=== PATIENT | female | born 1970 | race Caucasian/White ===

== ENCOUNTER 2020-04-06 07:49 | Inpatient (IN) | payer OTHER ==
[2020-04-06] MEDS ORDERED: CLINDAMYCIN-D5W 900 MG/50 ML*** 900 MG/50 ML BAG IV STA (08:23)
[2020-04-06] MEDS ORDERED: Lactated Ringers 1,000 ML IV SCH (08:30)
[2020-04-06] MEDS ORDERED: Lactated Ringers 1,000 ML IV ONE (08:45)
[2020-04-06] MEDS ORDERED: CLINDAMYCIN-D5W 900 MG/50 ML*** 900 MG/50 ML BAG IV ONE (08:45)
[2020-04-06] MEDS ORDERED: SUBLIMAZE 250 MCG/5 ML ONE (09:30)
[2020-04-06] MEDS ORDERED: DIPRIVAN 200 MG/20 ML IV ONE (09:30)
[2020-04-06] MEDS ORDERED: Versed 2 MG/2 ML Injection ONE (09:30)
[2020-04-06] MEDS ORDERED: Zemuron 100 MG/10 ML ONE ×2 (09:30→11:02)
[2020-04-06] MEDS ORDERED: Astramorph-Pf 5 MG/10 ML ONE (09:58)
[2020-04-06] MEDS ORDERED: Decadron 4 MG INJ ONE (10:00)
[2020-04-06] MEDS ORDERED: MARCAINE 0.5%-EPI 1:200,000 VL IJ ONE (10:50)
[2020-04-06] MEDS ORDERED: Marcaine 0.5%/Epinephrine 10 ML ONE (10:50)
[2020-04-06] MEDS ORDERED: Zofran 4 MG/2 ML VIAL ONE (11:12)
[2020-04-06] MEDS ORDERED: TORAdol 30 mg Injection ONE (11:13)
[2020-04-06] MEDS ORDERED: BRIDION 200MG/2ML IV ONE (11:21)
[2020-04-06 12:53] LABS: Appearance CLEAR (CLEAR); Bilirubin NEGATIVE (NEGATIVE); Blood NEGATIVE Ery/ul (0-5); Glucose NEGATIVE (NEGATIVE); Ketones NEGATIVE (NEGATIVE); Leukocyte Esterase NEGATIVE (NEGATIVE); Nitrite NEGATIVE (NEGATIVE); Protein,Urine Dip NEGATIVE (Negative); Specific Gravity 1.008 (1.005-1.025); Urobilinogen NEGATIVE mg/dL (0-1)
[2020-04-06] MEDS ORDERED: Zofran 4 MG/2 ML VIAL IV PRN ×2 (12:54→13:00)
[2020-04-06] MEDS ORDERED: TORAdol 30 mg Injection IV PRN (12:55)
[2020-04-06] MEDS ORDERED: Nubain 10 MG/ML IV PRN (13:00)
[2020-04-06] MEDS ORDERED: MORPHINE SULFATE 2 MG INJ IV PRN (13:00)
[2020-04-06] MEDS ORDERED: DEMEROL 50 MG IV PRN (13:00)
[2020-04-06] MEDS ORDERED: CLARITIN 10 MG PO PRN (13:00)
[2020-04-06] MEDS ORDERED: Sodium Chloride 0.9% 10 ML FLUSH Syringe IJ PRN (13:00)
[2020-04-06] MEDS ORDERED: Narcan 0.4 MG/ML IV PRN (13:00)
[2020-04-06 13:05] LABS: Bacteria NONE SEEN /HPF (NEGATIVE); WBC NONE SEEN /HPF (0-5)
[2020-04-06] MEDS: CLINDAMYCIN-D5W 900 MG/50 ML*** 900 MG/50 ML BAG IV SCH ×2 (13:14→20:58)
[2020-04-06] MEDS: Reglan 10 MG/2 ML IV SCH ×2 (13:15→21:14)
[2020-04-06] MEDS ORDERED: BENADRYL 50 MG/ML IV PRN (13:15)
[2020-04-06] MEDS: Colace 100 MG PO SCH ×2 (13:15→20:58)
[2020-04-06] MEDS: Mylicon 80MG PO SCH ×2 (13:15→20:57)
[2020-04-06] MEDS: Sodium Chloride 0.9% 10 ML FLUSH Syringe IJ SCH ×2 (14:20→21:14)
[2020-04-06 18:23] LABS: Hematocrit 37.7 % (35-47); Mean Corpuscular Hemoglobin 34.1 pg (26-32); Mean Corpuscular Hgb Concent. 34.5 g/dl (32-36); Mean Platelet Volume 9.9 fl (7.5-11.0); Platelet Count 270 K/mm3 (150-450); Red Blood Count 3.81 M/mm3 (4.1-5.4); Red Cell Distribution Width 12.2 % (11.5-14.0); White Blood Count 19.8 K/mm3 (4.0-10.5)
[2020-04-06] MEDS: Lactated Ringers 1,000 ML IV SCH (20:57)
[2020-04-06] MEDS: PERCOCET TABLET 5/325MG PO PRN (20:58)
[2020-04-07 05:14] LABS: Hematocrit 33.8 % (35-47); Hemoglobin 11.5 gm/dl (12.0-16.0); Mean Cell Volume 99.7 fl (78-100); Mean Corpuscular Hemoglobin 33.9 pg (26-32); Platelet Count 247 K/mm3 (150-450); Red Blood Count 3.39 M/mm3 (4.1-5.4)
[2020-04-07] MEDS: Lactated Ringers 1,000 ML IV SCH (05:19)
[2020-04-07] MEDS: Mylicon 80MG PO SCH (05:19)
[2020-04-07] MEDS: PERCOCET TABLET 5/325MG PO PRN ×2 (05:19→09:21)
[2020-04-07] MEDS: Reglan 10 MG/2 ML IV SCH (05:20)
[2020-04-07] MEDS: Sodium Chloride 0.9% 10 ML FLUSH Syringe IJ SCH (05:30)
[2020-04-07 05:36] LABS: ALKALINE PHOSPHATASE 41 U/L (38-126); ANION GAP 8.5 MEQ/L (5-15); BLOOD UREA NITROGEN 13 mg/dL (7-17); CHLORIDE 106 mmol/L (98-107); Calcium 8.1 mg/dL (8.4-10.2); Carbon Dioxide 24 mmol/L (22-30); Creatinine 1 0.65 mg/dL (0.52-1.04); EST GLOMERULAR FILTRATION RATE > 60.0 ML/MIN; Glucose 93 mg/dL (74-106); Potassium 3.9 mmol/L (3.5-5.1); SGOT/AST 23 U/L (14-36); SGPT/ALT 13 U/L (0-35); SODIUM 135 mmol/L (137-145); Total Protein 5.8 g/dL (6.3-8.2)
[2020-04-07] MEDS: Colace 100 MG PO SCH (07:55)
[2020-04-07] MEDS ORDERED: ENOXAPARIN SODIUM SQ SCH (08:00)
--- NOTE | 2020-04-07 08:10 | PCM.DCORD ---
- Discharge Discharge Date: 04/07/20 Disposition: Home, Self-Care Prescriptions: No Action Montelukast Sodium 10 mg [Singulair 10 MG] 10 mg PO DAILY Multivitamin [Multivitamins] 1 each PO DAILY Follow up with: ISMAEL COTE [Primary Care Provider] - 1 Week INDY ORTA MD [Family Provider] - 1 Week ESTER HOLBROOK DO [ACTIVE STAFF] - Call for Appointment (SHOULD FU IN 2 WKS)
--- NOTE | 2020-04-07 08:12 | PCM.DS ---
Discharge Summary Date of Admission: 04/06/20 07:49 Date of Discharge: 04/07/20 Admitting Physician: ESTER HOLBROOK DO Primary Care Provider: ISMAEL COTE Allergies Allergies cephalexin [From Keflex] Allergy (Verified 04/06/20 08:14) ofloxacin [From Floxin] Allergy (Verified 04/06/20 08:14) Sulfa (Sulfonamide Antibiotics) Allergy (Verified 04/06/20 08:14) Hospital Summary - Hospital Course Hospital Course: PT ADMITTED ON APRIL 06 FOR UNDERGOING LAPAROTOMY SUPRACERVICAL HYSTERECTOMY SECONDARY TO SYMPTOMATIC FIBROID UTERUS. DURING POSTOP PERIOD PT DID VERY WELL AND HAD STABLE HGB ONPOD 1 AT 11.9. PT WAS ABLE TO AMBULATE AND TOLERATE DIET AND WAS EAGER TO BE DISCHARGED TODAY. PT WAS GIVEN CLINDAMYCIN BID 5 DAYS PROPHYLAXIS AND WAS ADVISED TO FU IN OFFICE IN 2 WKS FOR POSTOP CHECK. PT ALSO GIVEN NORCO #[id number] FOR PAIN MANAGEMENT. ALL QUESTIONS ANSWERED TO HER SATISFACTION. - Vitals & Intake/Output Vital Signs: Vital Signs Temperature 98.9 F 04/07/20 07:37 Pulse Rate 71 04/07/20 07:37 Respiratory Rate 20 04/07/20 07:37 Blood Pressure 100/61 04/07/20 07:37 O2 Sat by Pulse Oximetry 100 04/07/20 07:37 Intake & Output: Intake & Output 04/04/20 04/05/20 04/06/20 04/07/20 11:59 11:59 11:59 11:59 Intake Total 2243 Output Total 1300 Balance 943 Weight 76.3 kg 76.3 kg - Lab Result Diagrams: 04/07/20 05:09 04/07/20 05:09 Lab Results-Last 24 Hrs: Lab Results-Last 24 Hours 04/06/20 04/06/20 04/06/20 Range/Units 08:15 10:51 18:22 WBC 19.8 H (4.0-10.5) K/mm3 RBC 3.81 L (4.1-5.4) M/mm3 Hgb 13.0 (12.0-16.0) gm/dl Hct 37.7 (35-47) % MCV 99.0 (78-100) fl MCH 34.1 H (26-32) pg MCHC 34.5 (32-36) g/dl RDW 12.2 (11.5-14.0) % Plt Count 270 (150-450) K/mm3 MPV 9.9 (7.5-11.0) fl Sodium (137-145) mmol/L Potassium (3.5-5.1) mmol/L Chloride (98-107) mmol/L Carbon Dioxide (22-30) mmol/L Anion Gap (5-15) MEQ/L BUN (7-17) mg/dL Creatinine (0.52-1.04) mg/dL Estimated GFR ML/MIN Glucose (74-106) mg/dL Calcium (8.4-10.2) mg/dL Total Bilirubin (0.2-1.3) mg/dL AST (14-36) U/L ALT (0-35) U/L Alkaline Phosphatase (38-126) U/L Serum Total Protein (6.3-8.2) g/dL Albumin (3.5-5.0) g/dL Urine Color STRAW (YELLOW) Urine Appearance CLEAR (CLEAR) Urine pH 7.0 (5-6) Ur Specific [place] 1.008 (1.005-1.025) Urine Protein NEGATIVE (Negative) Urine Ketones NEGATIVE (NEGATIVE) Urine Blood NEGATIVE (0-5) Pascual/ul Urine Nitrite NEGATIVE (NEGATIVE) Urine Bilirubin NEGATIVE (NEGATIVE) Urine Urobilinogen NEGATIVE (0-1) mg/dL Ur Leukocyte Esterase NEGATIVE (NEGATIVE) Urine WBC (Auto) NONE SEEN (0-5) /HPF Urine RBC (Auto) NONE (0-2) /HPF U Epithel Cells (Auto) NONE (FEW) /HPF Urine Bacteria (Auto) NONE SEEN (NEGATIVE) /HPF Urine Glucose NEGATIVE (NEGATIVE) mg/dL Urine HCG, Qual NEGATIVE (Negative) 04/07/20 04/07/20 Range/Units 05:09 05:09 WBC 15.0 H (4.0-10.5) K/mm3 RBC 3.39 L (4.1-5.4) M/mm3 Hgb 11.5 L (12.0-16.0) gm/dl Hct 33.8 L (35-47) % MCV 99.7 (78-100) fl MCH 33.9 H (26-32) pg MCHC 34.0 (32-36) g/dl RDW 12.0 (11.5-14.0) % Plt Count 247 (150-450) K/mm3 MPV 10.0 (7.5-11.0) fl Sodium 135 L (137-145) mmol/L Potassium 3.9 (3.5-5.1) mmol/L Chloride 106 (98-107) mmol/L Carbon Dioxide 24 (22-30) mmol/L Anion Gap 8.5 (5-15) MEQ/L BUN 13 (7-17) mg/dL Creatinine 0.65 (0.52-1.04) mg/dL Estimated GFR > 60.0 ML/MIN Glucose 93 (74-106) mg/dL Calcium 8.1 L (8.4-10.2) mg/dL Total Bilirubin 0.70 (0.2-1.3) mg/dL AST 23 (14-36) U/L ALT 13 (0-35) U/L Alkaline Phosphatase 41 (38-126) U/L Serum Total Protein 5.8 L (6.3-8.2) g/dL Albumin 3.0 L (3.5-5.0) g/dL Urine Color (YELLOW) Urine Appearance (CLEAR) Urine pH (5-6) Ur Specific [place] (1.005-1.025) Urine Protein (Negative) Urine Ketones (NEGATIVE) Urine Blood (0-5) Pascual/ul Urine Nitrite (NEGATIVE) Urine Bilirubin (NEGATIVE) Urine Urobilinogen (0-1) mg/dL Ur Leukocyte Esterase (NEGATIVE) Urine WBC (Auto) (0-5) /HPF Urine RBC (Auto) (0-2) /HPF U Epithel Cells (Auto) (FEW) /HPF Urine Bacteria (Auto) (NEGATIVE) /HPF Urine Glucose (NEGATIVE) mg/dL Urine HCG, Qual (Negative) - Procedures and Test Procedures and Tests throughout Hospitalization: Therapy Orders & Screens 04/06/20 12:34 Incentive Spirometry TID Comment: Diagnosis: fibroid tumor 04/06/20 13:16 Respiratory Therapy Assessment DAILY Comment: Diagnosis: fibroid tumor Discharge Exam Wound Assessment: Skin/Wound Assessment Wound/Incision Assessment Start: 04/06/20 22:20 Text: Status: Active Freq: Q6H Protocol: Document 04/07/20 02:00 AW (Rec: 04/07/20 03:48 AW [id number]) Wound/Incision Assessment Lower Anterior Medial Abdomen Wound Assessment Shift Assessment Wound Type Incision Wound Stage Non Pressure Wound Drainage Amount None Comment horizontal lower medial abdominal incision with dermabond, no redness or drainage noted. - Discharge Disposition: Home, Self-Care Condition: Stable Prescriptions: No Action Montelukast Sodium 10 mg [Singulair 10 MG] 10 mg PO DAILY Multivitamin [Multivitamins] 1 each PO DAILY Follow up with: INDY ORTA MD [Family Provider] - 1 Week ISMAEL COTE [Primary Care Provider] - 1 Week ESTER HOLBROOK DO [ACTIVE STAFF] - Call for Appointment (SHOULD FU IN 2 WKS)
--- NOTE | 2020-04-07 08:30 | OP ---
SURGERY DATE/TIME: 04/06/2020 1002 PREOPERATIVE DIAGNOSIS: Symptomatic fibroid uterus. POSTOPERATIVE DIAGNOSIS: Symptomatic fibroid uterus. PROCEDURE: Laparotomy, supracervical hysterectomy. SURGEON: Logan Schultz D.O. PHY THERAPIST: Lamine Sharpe x ray service technician. ANESTHESIA: General. ESTIMATED BLOOD LOSS: 400 cc. COMPLICATIONS: None. INDICATIONS: The risks, benefits, indications and alternatives of the procedure were reviewed with the patient prior to procedure. The patient understood the risk of infection, bleeding, bowel injury, bladder injury, ureteral injury, uterine perforation, pelvic infection, thrombophilia disorder associated with the surgery and desires to have this procedure as a possible need to alleviate her current medical condition. DESCRIPTION OF PROCEDURE AND FINDINGS: At this point the patient is taken to the operating room, placed in supine position, given general anesthesia, prepped and draped in the usual sterile fashion. A Pfannenstiel incision was made approximately 2 cm above the symphysis pubis and extended sharply to the rectus fascia. The fascia was then incised bilaterally with curved Ann scissors and the muscles of the anterior abdominal wall were in the midline by sharp and blunt dissection. The peritoneum was then grasped between two pickups elevated and entered sharply with Metzenbaum scissors. The pelvis is then examined and noted to have approximately 12 week size uterus with large posterior fibroids approximately 6 x 7 cm as was mentioned in the ultrasound. From this point O'Sonny-O'Vivar retractor was placed into the incision and the bowel packed with moist laparotomy sponges. Two Alfa clamps were placed on the cornua and used for retraction. From this point a LigaSure was then used placed over the left utero-ovarian ligament where it was clamped, coagulated and cut taken over to the round ligament to uterine vasculature on the left side and was done so was it was clamped, coagulated and cut without complication. Hemostasis was obtained. The uterine vessel on the left side was identified, clamped, coagulated and cut with LigaSure and again hemostasis was obtained. The same procedure was performed on the right side where the right utero-ovarian ligament was identified. It was clamped, coagulated and cut taken down to the round ligament to the uterine vasculature on the right side where it was clamped, coagulated and cut without complication and hemostasis was obtained. The bladder flap was then developed. Cautery was used to amputate the uterus from its cervical stump region and was done so without complication. 0 Vicryl suture was then used to close the cervical stump region where it was reperitonealized as well. From this point the pelvis was then irrigated copiously with warm normal saline. All sponge and instruments were then removed the patient's abdomen. The fascia was closed with running 0 Vicryl. Hemostasis assured. The muscles were closed with 2-0 chromic suture. Sponge, lap, needle and instrument counts were correct x2. The skin was closed with absorbable castillo called Insorb and the skin had Dermabond placed on the skin surface. Again as mentioned the sponge, lap, needle and instrument counts were correct x2. The patient was then taken to the recovery room in stable condition.
[2020-04-07] MEDS ORDERED: NON-FORMULARY ITEM (Multivitamin [Multivitamins] 1 EACH) PO SCH (10:00)
[2020-04-07] MEDS ORDERED: THERAGRAN MULTIVITAMIN PO SCH (10:00)
[2020-04-07 10:50] VITALS: BP 101/55; PULSE 77; O2SAT 99
== END 2020-04-07 11:58 | disposition home or self-care (01) | DRG 743 ==
LOC: MED SURG 07:49
PROVIDERS: ADMIT Obstetrics & Gynecology; ATTEND Obstetrics & Gynecology
PROC: 0UT90ZL Resection of Uterus, Supracervical, Open Approach (ICD-10-PCS; principal; 2020-04-06)
DX: D25.9 Leiomyoma of uterus, unspecified (principal)
CPT/HCPCS: 36415; 62322; 64488; 76937; 76942; 80053; 81001; 84703; 85027; 87086; J1100; J1200; J1650; J1885; J2250; J2274; J2405; J2704; J3010; A9270-GY

== ENCOUNTER 2023-08-03 05:42 | Day surgery (SDC) | payer BC ==
[2023-08-03] MEDS ORDERED: Lactated Ringers 1,000 ML IV SCH (06:30)
[2023-08-03] MEDS ORDERED: Lactated Ringers 1,000 ML IV ONE ×2 (06:36→07:56)
[2023-08-03] MEDS ORDERED: Versed 2 MG/2 ML Injection ONE (07:33)
[2023-08-03] MEDS ORDERED: DIPRIVAN 200 MG/20 ML IV ONE ×3 (07:33→07:59)
--- NOTE | 2023-08-03 08:14 | OP ---
SURGERY DATE/TIME: 08/03/2023 0742 PREOPERATIVE DIAGNOSIS: Rectal bleeding, history of colon polyps. POSTOPERATIVE DIAGNOSIS: Normal colon. PROCEDURE: Colonoscopy. SURGEON: Dr. Michelle. ANESTHESIA: Medications given by anesthesia department. HISTORY: The patient is a 52-year-old white female who reports that she has been having problems with bright red rectal bleeding intermittent. She said the last occurrence was about ten days ago. The patient had no blood with the prep. The patient was felt the need to have endoscopic evaluation. She was appraised of the risks of the procedure including the risk of perforation, phlebitis, untoward reaction to medication, bleeding and missed lesions. The patient verbalized her understanding and desired to have the procedure performed. DESCRIPTION OF PROCEDURE: The patient was given the medications by the anesthesia department. She had continuous pulse oximetry, ECG monitoring and intermittent blood pressure monitoring during the examination. She was placed in the left lateral decubitus position. A digital rectal examination was performed and revealed normal anal sphincter tone, no masses and absence of any significant hemorrhoids. The flexible Olympus pediatric colonoscope was used to intubate the rectum. A view of the colon was developed sequentially to the cecum. Upon insertion and withdrawal, including a retroflex view in the rectum, no mucosal lesions were encountered. The scope was removed from the patient who tolerated the procedure well and was sent back to OP recovery in good condition. The prep was noted to be fair to good with large amounts of liquid stool in the colon which we were able to suction out mostly to allow adequate visualization of the colon.
[2023-08-03 08:30] VITALS: RESP 18
[2023-08-03 08:49] VITALS: BP 108/71; PULSE 65; TEMP 98.2; O2SAT 99
== END 2023-08-03 08:50 | disposition home or self-care (01) ==
LOC: SDC 05:42
PROVIDERS: ATTEND Family Medicine
DX: Z09 Encounter for follow-up examination after completed treatment for conditions other than malignant neoplasm (principal); Z86.010 Personal history of colon polyps; K62.5 Hemorrhage of anus and rectum
CPT/HCPCS: J2250; J2704